=== PATIENT | male | born 1990 | race Caucasian/White ===

== ENCOUNTER 2020-11-07 11:15 | Day surgery (SDC) | payer MEDICAID ==
[~2020-11-07] VITALS: Ht 188 cm; Wt 76.6 kg
[2020-11-07] VITALS (9 sets, daily range): BP systolic 120–135; BP diastolic 77–84
[2020-11-07] MEDS ORDERED: HYDR-3972 PO (11:40)
[2020-11-07] MEDS ORDERED: CEPH-585 PO (11:40)
[2020-11-07] MEDS ORDERED: SULF1TAB45 PO (11:40)
[2020-11-07] MEDS ORDERED: cefazolin/dext.iso 2gm/100ml 100 ML IV ONE (11:55)
[2020-11-07] MEDS ORDERED: famotidine 20mg tablet PO PRN (11:55)
[2020-11-07 12:19] LABS: BASOPHILS % (AUTO) 0.4 % (0-1); EOSINOPHILS # (AUTO) 0.1 X10'3 (0-0.9); EOSINOPHILS % (AUTO) 0.8 % (0-6); LYMPHOCYTES # (AUTO) 1.6 X10'3 (1.1-4.8); LYMPHOCYTES % (AUTO) 13.9 % (21-51); MEAN CORPUSCULAR HEMOGLOBIN 32.6 PG (27.0-31.0); MEAN PLATELET VOLUME 9.7 FL (7.4-10.4); MONOCYTES # (AUTO) 0.8 X10'3 (0-0.9); MONOCYTES % (AUTO) 7.2 % (2-12); NEUTROPHILS # (AUTO) 8.9 X10'3 (1.8-7.7); NEUTROPHILS % (AUTO) 77.7 % (42-75); PRE OP HEMATOCRIT 48.4 % (42.0-52.0); PRE OP HEMOGLOBIN 16.4 g/dL (14.0-17.9); PRE OP PLATELET COUNT 316 X10'3 (140-440); RED BLOOD COUNT 5.05 X10'6 (4.70-6.10); RED CELL DISTRIBUTION WIDTH 13.2 % (11.5-14.5)
[2020-11-07] MEDS ORDERED: BUPIVAcaine/PF 2.5mg/ml (0.25%) 10ml vial ONE ×2 (13:41→15:18)
[2020-11-07] MEDS ORDERED: hydrALAZINE 20mg/ml inj. IV PRN (13:50)
[2020-11-07] MEDS ORDERED: meperidine/PF 25mg/ml syringe IV PRN ×3 (13:50)
[2020-11-07] MEDS ORDERED: morphine 2 MG/ML inj. syringe IV PRN (13:50)
[2020-11-07] MEDS ORDERED: ringers solution, lacted 1,000 ML IV SCH (13:50)
[2020-11-07] MEDS ORDERED: labetalol 20mg/4ml (5mg/ml) syringe IV PRN (13:50)
[2020-11-07] MEDS ORDERED: acetaminophen 1,000mg/100ml IV 100 ML IV PRN (13:50)
[2020-11-07] MEDS ORDERED: morphine 4 MG/ML inj SYRINge IV PRN (13:50)
[2020-11-07] MEDS ORDERED: ondansetron/PF 4mg/2ml inj IV PRN (13:50)
[2020-11-07] MEDS ORDERED: proCHLORperazine 10 MG/2 ml inj IV PRN (13:50)
[2020-11-07 13:52] LABS: ISTAT ANION GAP 12 (8-12); ISTAT BUN 14 mg/dL (7-18); ISTAT CL 101 mmol/L (99-107); ISTAT CREATININE 0.8 mg/dL (0.8-1.3); ISTAT GLUCOSE 94 mg/dL (70-105); ISTAT HGB 15.3 g/dl (14.0-18.0); ISTAT Hct 45 %PCV (42-52); ISTAT IONIZED CALCIUM 1.16 mmol/L (1.03-1.32); ISTAT NA 138 mmol/L (135-145); ISTAT TOTAL CO2 25 mmol/L (24-32); ISTAT eGFR > 90 ML/MIN; POC BUN/CREATININE RATIO 17.5 (5.4-32.0)
[2020-11-07] MEDS ORDERED: sevoflurane 250ml liquid IH ONE (14:26)
[2020-11-07] MEDS ORDERED: fentaNYL/PF 50MCG/1 ML 2ML syringe ONE (14:38)
[2020-11-07] MEDS ORDERED: midazolam 1 mg/ML 2ml injection ONE (14:39)
[2020-11-07] MEDS ORDERED: propofol inj 20 ML IV ONE (14:49)
[2020-11-07] MEDS ORDERED: LIDOcaine 2% (20mg/ml) 5ml vial ONE (14:49)
[2020-11-07] MEDS ORDERED: dexamethasone sod phosphate 4mg/ml inj. ONE (14:49)
[2020-11-07] MEDS ORDERED: rocuronium 10mg/ml inj IV ONE (14:49)
[2020-11-07] MEDS ORDERED: ondansetron/PF 4mg/2ml inj ONE (14:49)
[2020-11-07] MEDS ORDERED: LIDOcaine 2% 5ml jelly ONE (15:02)
[2020-11-07] MEDS ORDERED: neostigmine methylsulfate 1 MG/ML 10ml vial ONE (15:21)
[2020-11-07] MEDS ORDERED: glycopyrrolate 0.2mg/ml inj ONE (15:21)
--- NOTE | 2020-11-07 15:42 | NUR ---
Received from OR via [facility], accompanied by Anesthesiologist DR GU and report given by Anesthesiologist. PT DENIES PAIN, DROWSY. PT W/BIAS DRSG COVERING INCISION/DRSG OF RIGHT HAND/WRIST. RING FINGER SLIGHTLY DUSKY COMPARED TO ADJACENT FINGERS, DR NICHOLS ASSESSED AND FEELS IT IS WITHIN ACCEPTABLE RANGE W/CAPILLARY REFILL TIME. Addendum: 11/07/20 at 1609 by Marina Caruso RN Amended: Links added.
--- NOTE | 2020-11-07 17:02 | NUR ---
PTS RING FINGER NOW PINK W/WELFARE ADVISER 1-2 SECONDS. DRSG REMAINS CDI. D/C INSTRUCTIONS GIVEN AND GONE OVER W/PT AND PTS FAMILY WHO VERBALIZED UNDERSTANDING. PT D/CD TO HOME VIA W/C TO PRIVATE VEHICLE W/O INCIDENT. Addendum: 11/07/20 at 1719 by Marina Caruso RN Amended: Links added.
== END 2020-11-07 17:02 | disposition home or self-care (01) ==
LOC: PAS 11:15
PROVIDERS: ATTEND Orthopaedic Surgery Hand Surgery
DX: M65.841 Other synovitis and tenosynovitis, right hand (principal); I10 Essential (primary) hypertension; F12.90 Cannabis use, unspecified, uncomplicated; Z79.899 Other long term (current) drug therapy; Z20.822 Contact with and (suspected) exposure to COVID-19; Z79.2 Long term (current) use of antibiotics
CPT/HCPCS: 26020; 36415; 80047; 82948; 85025; 87070; 87075; 87077; 87186; 87635; 93005; C9803; J1100; J2001; J2250; J2405; J2704; J2710; J3010; J3490; Z7506; Z7508; Z7512; A4215; A4618; A7000

== ENCOUNTER 2024-04-03 07:47 | Emergency (ER) | payer MEDICAID ==
[~2024-04-03] VITALS: Ht 188 cm; Wt 82.8 kg
[~2024-04-03 07:47] MED LIST: CEPH-585 PO; HYDR-3972 PO; SULF1TAB45 PO
[2024-04-03 08:20] LABS: BILIRUBIN,URINE MODERATE (Neg); CLARITY,URINE CLOUDY (Clear); GLUCOSE, URINE NEGATIVE (Neg); KETONES,URINE >=80 mg/dl (Neg); LEUKOCYTE ESTERASE ,URINE NEGATIVE (Neg); NITRITES, URINE NEGATIVE (Neg); OCCULT BLOOD,URINE TRACE-INTACT (Neg); PROTEIN,URINE 30 mg/dl (Neg)
[2024-04-03 08:26] LABS: COLOR,URINE DARK YELLOW (Yellow); UA COLLECTION TYPE CLN CATCH MIDSTREAM
[2024-04-03 08:28] LABS: BACTERIA,URINE FEW /HPF (Neg); FINE GRANULAR CAST 0-3 /LPF (NEGATIVE); MUCUS STRANDS MANY /LPF (Neg); RBC,URINE 0-2 /HPF (0-2); SQUAMOUS EPITHELIAL CELL,UR NONE SEEN /LPF (FEW); WBC,URINE 0-4 /HPF (0-4)
[2024-04-03 08:41] LABS: EOSINOPHILS % (AUTO) 0.1 % (0-6); HEMATOCRIT 51.2 % (42.0-52.0); HEMOGLOBIN 17.3 g/dl (14.0-17.9); LYMPHOCYTES # (AUTO) 0.8 X10'3 (1.1-4.8); LYMPHOCYTES % (AUTO) 24.5 % (21-51); MEAN CORPUSCULAR HEMOGLOBIN 32.5 PG (27.0-31.0); MEAN CORPUSCULAR HGB CONC 33.9 g/dL (33.0-36.5); MEAN CORPUSCULAR VOLUME 95.8 FL (78-98); MEAN PLATELET VOLUME 8.3 FL (7.4-10.4); MONOCYTES # (AUTO) 0.4 X10'3 (0-0.9); MONOCYTES % (AUTO) 12.5 % (2-12); NEUTROPHILS # (AUTO) 2.1 X10'3 (1.8-7.7); NEUTROPHILS % (AUTO) 61.9 % (42-75); PLATELET COUNT 196 X10'3 (140-440); RED BLOOD COUNT 5.34 X10'6 (4.70-6.10); WHITE BLOOD COUNT 3.3 X10'3 (4.5-11.0)
[2024-04-03 08:54] LABS: ALANINE AMINOTRANSFERASE 43 U/L (12-78); ALBUMIN 4.2 G/DL (3.4-5.0); ALBUMIN/GLOBULIN RATIO 1.3 (1.1-1.5); ALKALINE PHOSPHATASE 76 IU/L (46-116); ANION GAP 11 (8-16); ASPARTATE AMINO TRANSFERASE 34 U/L (10-37); BILIRUBIN,TOTAL 0.7 MG/DL (0.1-1.0); BLOOD UREA NITROGEN 16 MG/DL (7-18); BUN/CREATININE RATIO 17.4 (10.0-20.0); CALCIUM 9.1 MG/DL (8.5-10.1); CHLORIDE 99 MMOL/L (99-107); CREATININE 0.92 MG/DL (0.60-1.10); GLUCOSE 108 MG/DL (70-104); POTASSIUM 3.9 MMOL/L (3.5-5.1); SODIUM 137 MMOL/L (135-145); TOTAL CARBON DIOXIDE 27.5 MMOL/L (24-32); TOTAL PROTEIN 7.5 G/DL (6.4-8.2); eCRCL 135 ML/MIN; eGFR > 90 ML/MIN
[2024-04-03] MEDS: ketorolac trometh 30MG/ML vial 30 MG/ML VIAL IM ONE (09:38)
[2024-04-03 10:58] VITALS: BP 102/59; PULSE 80; RESP 17; TEMP 98.4; O2SAT 96
== END 2024-04-03 11:01 | disposition home or self-care (01) ==
LOC: ER 07:49
DX: B34.9 Viral infection, unspecified (principal); Z79.2 Long term (current) use of antibiotics; Z79.899 Other long term (current) drug therapy
CPT/HCPCS: 36415; 80053; 81001; 85025; 87502; 87503; 96372; 99283; J1885